=== PATIENT | female | born 1990 | race Two or more races ===

== ENCOUNTER 2019-03-12 18:29 | Emergency (ER) | payer OTHER ==
[~2019-03-12] VITALS: Ht 170.2 cm; Wt 63.5 kg
== END 2019-03-12 23:01 | disposition home or self-care (01) ==
LOC: ER 18:29
DX: K29.70 Gastritis, unspecified, without bleeding (principal)

== ENCOUNTER 2019-03-14 19:27 | Inpatient (IN) | payer OTHER ==
[~2019-03-14] VITALS: Ht 152.4 cm; Wt 5.0 kg
[2019-03-14] MEDS ORDERED: PROTONIX20 MG (19:40)
[2019-03-14] MEDS ORDERED: FLAGYL500MG (19:42)
[2019-03-14] MEDS ORDERED: BENTYL10 MG/1 ML (19:42)
== END 2019-03-17 08:59 | disposition home or self-care (01) | DRG 392 ==
LOC: ER 19:27 → MEDJ 03-15 06:20 → SEC-K 03-15 06:20 → MEDI 03-15 06:20 → MEDJ 03-16 14:13
PROVIDERS: ADMIT Internal Medicine Cardiovascular Disease
PROC: 8E0ZXY6 Isolation (ICD-10-PCS; principal; 2019-03-15)
DX: K52.89 Other specified noninfective gastroenteritis and colitis (principal); K29.00 Acute gastritis without bleeding; D72.828 Other elevated white blood cell count